=== PATIENT | female | born 1955 | race Hispanic/Latino ===

== ENCOUNTER 2017-02-16 19:58 | Emergency (ER) | payer SELFPAY ==
[~2017-02-16] VITALS: Ht 162.6 cm; Wt 89.8 kg
[2017-02-16] MEDS ORDERED: NORCO 5/3251 TABLET PO (21:42)
[2017-02-16 22:00] VITALS: BP 151/57
== END 2017-02-16 22:01 | disposition home or self-care (01) ==
LOC: EME 19:58
DX: S83.92XA Sprain of unspecified site of left knee, initial encounter (principal); W19.XXXA Unspecified fall, initial encounter; X50.1XXA Overexertion from prolonged static or awkward postures, initial encounter
CPT/HCPCS: 73564; 99281; 99284

== ENCOUNTER 2017-03-15 19:51 | Emergency (ER) | payer SELFPAY ==
[~2017-03-15] VITALS: Ht 162.6 cm; Wt 89.4 kg
[~2017-03-15 19:51] MED LIST: NORCO 5/3251 TABLET PO
[2017-03-15] MEDS ORDERED: ULTRACET1 TABLET PO (23:01)
[2017-03-15 23:17] VITALS: BP 139/67
== END 2017-03-15 23:18 | disposition home or self-care (01) ==
LOC: EME 19:51
DX: M25.562 Pain in left knee (principal); R60.0 Localized edema; G89.29 Other chronic pain
CPT/HCPCS: 93971; 99281; 99283